=== PATIENT | male | born 1940 | race Caucasian/White ===

== ENCOUNTER 2017-03-05 11:18 | Emergency (ER) | payer MEDICAID, MEDICARE ==
[~2017-03-05] VITALS: Ht 167.6 cm; Wt 56.4 kg
[2017-03-05] MEDS ORDERED: SODIUM CHLORIDE FLUSH 10ML SYR IVF ONE (12:00)
[2017-03-05] MEDS ORDERED: ASPIRIN 81 MG TABLET CHEW PO ONE (12:00)
[2017-03-05] MEDS ORDERED: ASPIRIN 81 MG TABLET CHEW ONE (12:15)
[2017-03-05 12:21] LABS: RAPID INFLUENZA A Negative (Negative); RAPID INFLUENZA B Negative (Negative)
[2017-03-05 12:21] LABS: HEMATOCRIT 46.8 % (39.2-51.8); HEMOGLOBIN 15.5 g/dL (13.7-18.0); WHITE BLOOD COUNT 6.3 x10^3/uL (3.4-10)
[2017-03-05 12:30] LABS: BLOOD UREA NITROGEN 15 mg/dL (7-18)
[2017-03-05 12:36] LABS: ASPARTATE AMINO TRANSFERASE 18 U/L (15-37)
[2017-03-05 12:43] LABS: IS PT STATUS REG ER OR PRE ER? YES
[2017-03-05 13:02] VITALS: BP 118/68
== END 2017-03-05 14:31 | disposition home or self-care (01) ==
LOC: ED 13:40
DX: R07.89 Other chest pain (principal)
CPT/HCPCS: 36415; 71010; 80048; 80076; 82040; 83690; 84484; 85025; 87400; 93005; 99285

== ENCOUNTER 2018-01-15 00:21 | Emergency (ER) | payer MEDICARE ==
[~2018-01-15] VITALS: Ht 165.1 cm; Wt 59.6 kg
[2018-01-15 01:40] VITALS: BP 138/84
== END 2018-01-15 01:04 | disposition home or self-care (01) ==
LOC: ED 00:38
DX: R04.0 Epistaxis (principal); R51 Headache
CPT/HCPCS: 70450; 99284

== ENCOUNTER 2018-06-03 05:54 | Emergency (ER) | payer MEDICARE ==
[~2018-06-03] VITALS: Ht 162.6 cm; Wt 59.5 kg
--- NOTE | 2018-06-03 06:20 | NUR ---
VERY PLEASANT SAMI SPEAKING ONLY GENTLEMN HERE WITH GRADDAUGHTER WHO NOTES NATTY HE BEGAN HAVING A COUGH YESTERDAY PT STATES IS PRODUCTIVE, COMPLAINING CHESP PAIN WITH PALP L SIDE, COMPLAIN OF HEADACHE WELL. PT ONLY HISTORY IS HTN.
[2018-06-03] MEDS ORDERED: ACETAMINOPHEN 500 MG TABLET ONE (06:24)
--- NOTE | 2018-06-03 06:27 | NUR ---
RADIOLOGY TO BEDSIDE, PT MEDICATED WITH TYLENOL FOR PAIN, ENCOURAGE PO FLUIDS, GRANDAUGHTER AT BEDSIDE
[2018-06-03] MEDS ORDERED: ACETAMINOPHEN 500 MG TABLET PO ONE (06:30)
--- NOTE | 2018-06-03 07:19 | NUR ---
Recieved bedside report from SHARI Tinoco. All questions answered. Assuming care of pt. Pt resting on gurney connected to all monitors. Pt's grand daughter at bedside. NADN. No needs expressed. All safety measures in place. Call light within reach. Waiting for istat Trop.
[2018-06-03 08:05] VITALS: BP 121/66
== END 2018-06-03 08:06 | disposition home or self-care (01) ==
LOC: ED 07:52
DX: J06.9 Acute upper respiratory infection, unspecified (principal); M94.0 Chondrocostal junction syndrome [Tietze]; I10 Essential (primary) hypertension
CPT/HCPCS: 36415; 71045; 84484; 93005; 99284

== ENCOUNTER 2020-05-02 16:16 | Emergency (ER) | payer MEDICARE, MEDICAID ==
[~2020-05-02] VITALS: Ht 165.1 cm; Wt 61.2 kg
[~2020-05-02 16:16] MED LIST: ALBUTEROL PO; AMBROXOL PO; ASPI81TA45 PO; ATOR40TA78 PO; CEFD300C37 PO; CEFT1VIA13 IM; DEXA4TAB66 PO; DOXY100T PO; NAPHAZOLINE NAS
--- NOTE | 2020-05-02 16:46 | NUR ---
PT C/O SHARP CHEST PAIN X 4 DAYS. PAIN RADIATES TO THE LEFT SIDE AND IN HIS BACK. WORSENS WITH MOVEMENT. 07/21. PT DENIES CARDIAC HX. PT DENIES N/V, GI PAIN, OR SOB. PT NIECE BEDSIDE. PT VERY HARD OF HEARING.
[2020-05-02] MEDS ORDERED: SODIUM CHLORIDE 0.9% 1,000ML IVBOLUS ONE (17:30)
[2020-05-02] MEDS ORDERED: ASPIRIN 81 MG TABLET CHEW PO ONE (17:30)
[2020-05-02] MEDS ORDERED: ASPIRIN 81 MG TABLET CHEW ONE (17:30)
[2020-05-02] MEDS ORDERED: SODIUM CHLORIDE FLUSH 10ML SYR IVF ONE (17:30)
[2020-05-02 17:52] LABS: BASOPHILS % (AUTO) 1 % (0-1); EOSINOPHILS % (AUTO) 1 % (1-7); LYMPHOCYTES % (AUTO) 17 % (22-44); MEAN CORPUSCULAR HEMOGLOBIN 29.2 pg (27.5-34.5); MEAN CORPUSCULAR HGB CONC 33.3 g/dL (33.2-36.2); MEAN PLATELET VOLUME 8.9 fL (7.4-10.4); MONOCYTES % (AUTO) 9 % (2-9); NEUTROPHILS % (AUTO) 73 % (42-75); PLATELET COUNT 179 x10^3/uL (130-400); RED CELL DISTRIBUTION WIDTH 14.5 % (9.4-14.8)
[2020-05-02 18:01] LABS: MD NO
[2020-05-02 18:03] LABS: ALBUMIN 3.7 g/dL (3.4-5.0); ANION GAP 7 mmol/L (5-15); CALCIUM 8.7 mg/dL (8.5-10.1); CHLORIDE 106 mmol/L (98-107); CREATININE 1.27 mg/dL (0.7-1.3)
[2020-05-02 18:06] LABS: TROPONIN I < 0.015 ng/mL (0.000-0.045)
--- NOTE | 2020-05-02 19:22 | NUR ---
pt resting comfortably, waiting on lab results. no complaint of chest pain at this time. blanket provided for cold feeling. pt on cr monitor and siderails up x2, and call light within reach.
[2020-05-02 20:24] VITALS: BP 125/70
--- NOTE | 2020-05-02 20:25 | NUR ---
Pt a&ox4, ambulatory, and in no acute distress. f/u and d/c instructions given to pt and he v/u.
== END 2020-05-02 20:27 | disposition home or self-care (01) ==
LOC: MERGE 16:16 → ED 17:37
DX: R07.89 Other chest pain (principal); M54.5 Low back pain; R94.31 Abnormal electrocardiogram [ECG] [EKG]; R06.02 Shortness of breath
CPT/HCPCS: 36415; 71045; 80048; 82040; 83880; 84484; 85025; 93005; 96360; 99285; J7030; 96361

== ENCOUNTER 2020-06-22 16:33 | Observation (INO) | payer MEDICARE, MEDICAID ==
[~2020-06-22] VITALS: Ht 165.1 cm; Wt 52.4 kg
--- NOTE | 2020-06-22 17:00 | NUR ---
oceanographic meteorologist completed. Pt is [place]-speaking only, slightly [place] noted, and states he has been having CP with radiation into L back and SOB when pain comes one for the last months since being d/c'd from here for pneumonia. Pt was told to get an appoitment with a patient transport orderly but that office has not called him back for him to make one yet. Pt states pain comes on when he's out running around and takes his breath away with 10/10 pain that slowly resolves to 0/10 with rest. Pt is currently pain free.
--- NOTE | 2020-06-22 17:10 | NUR ---
IV started and labs drawn in expectation of MD orders.
--- NOTE | 2020-06-22 17:15 | NUR ---
MD exam completed with this RN for translation assistance. Granddaughter also present for assistance if needed, but currently none needed. Discussed MD's plan of care for ED and possibility for admission later tonight. Education on translation services available here at this facility for when pt is here on his own to both pt and granddaughter with both stating understanding of this education. Call light in reach and return demonstation verbalized for if he needs assistance to the restroom or wants to watch TV.
[2020-06-22] MEDS ORDERED: ONDANSETRON 2MG/ML, 2ML ONE (17:21)
[2020-06-22] MEDS ORDERED: MORPHINE SULFATE 4 MG/ML, 1ML ONE (17:21)
[2020-06-22] MEDS ORDERED: ASPIRIN 81 MG TABLET CHEW ONE (17:21)
--- NOTE | 2020-06-22 17:27 | NUR ---
Pt medicated as ordered at this time.
[2020-06-22 17:29] LABS: BASOPHILS % (AUTO) 1 % (0-1); EOSINOPHILS % (AUTO) 1 % (1-7); LYMPHOCYTES % (AUTO) 13 % (22-44); MEAN CORPUSCULAR HEMOGLOBIN 29.4 pg (27.5-34.5); MEAN CORPUSCULAR HGB CONC 33.2 g/dL (33.2-36.2); MEAN PLATELET VOLUME 8.6 fL (7.4-10.4); MONOCYTES % (AUTO) 9 % (2-9); NEUTROPHILS % (AUTO) 77 % (42-75); PLATELET COUNT 192 x10^3/uL (130-400); RED BLOOD COUNT 4.96 x10^6/uL (4.38-5.82); RED CELL DISTRIBUTION WIDTH 14.4 % (9.4-14.8)
[2020-06-22] MEDS ORDERED: MORPHINE SULFATE 4 MG/ML, 1ML IVPush PRN (17:30)
[2020-06-22] MEDS ORDERED: ASPIRIN 81 MG TABLET CHEW PO ONE (17:30)
[2020-06-22] MEDS ORDERED: SODIUM CHLORIDE FLUSH 10ML SYR IVF ONE (17:30)
[2020-06-22] MEDS ORDERED: ONDANSETRON 2MG/ML, 2ML IVPush ONE (17:30)
--- NOTE | 2020-06-22 17:30 | NUR ---
Warm blanket provided for c/o feeling cold. No fever present.
[2020-06-22 17:35] LABS: ALANINE AMINOTRANSFERASE 17 U/L (12-78); ANION GAP 7 mmol/L (5-15); CALCIUM 8.6 mg/dL (8.5-10.1); CHLORIDE 106 mmol/L (98-107); CREATININE 1.29 mg/dL (0.7-1.3)
[2020-06-22 17:41] LABS: ALKALINE PHOSPHATASE 99 U/L (45-117); BILIRUBIN,TOTAL 0.3 mg/dL (0.2-1.0); TOTAL PROTEIN 7.4 g/dL (6.4-8.2); TROPONIN I < 0.015 ng/mL (0.000-0.045)
--- NOTE | 2020-06-22 17:48 | NUR ---
Pt noted to have SpO2 of 82% with good waveform and shallow respirations without CP or feelings of dyspnea. Placed on 3L/min O2 via NC and good effect noted with increased SpO2 to 95%.
--- NOTE | 2020-06-22 18:08 | NUR ---
Pt requested restroom assistance. Able to walk with steady gait to and from restroom without CP or SOB though SpO2 after exercise on RA noted to decreased to 77% with rapid recovery to 94% on 3L/min NC once back to room.
--- NOTE | 2020-06-22 18:28 | NUR ---
Report called to SHARI Flores on floor and pt and granddaughter notified of pending transfer. RN receiving pt aware of [place]-speaking only and need for translation.
--- NOTE | 2020-06-22 19:04 | NUR ---
Pt still in room awaiting transport to floor.
[2020-06-22 19:24] VITALS: BP 123/72
[2020-06-22] MEDS ORDERED: ENALAPRILAT 1.25 MG/ML, 2ML IVPush PRN (21:30)
[2020-06-22] MEDS ORDERED: ACETAMINOPHEN 325 MG TABLET PO PRN (21:30)
[2020-06-22] MEDS ORDERED: ONDANSETRON 2MG/ML, 2ML IVPush PRN (21:30)
[2020-06-22] MEDS ORDERED: MELATONIN 5 MG TABLET PO PRN (21:30)
[2020-06-22 23:23] LABS: TROPONIN I < 0.015 ng/mL (0.000-0.045)
[2020-06-23 01:54] VITALS: BP 109/65
[2020-06-23 05:17] LABS: CHOL/HDL RATIO 4.6; CHOLESTEROL, TOTAL 206 mg/dL (140-239); HDL CHOL % 22 % (26-37); HDL CHOLESTEROL (DIRECT) 45 mg/dL (40-60); LDL CHOLESTEROL,CALCULATED 143 mg/dL (54-169); LDL/HDL RATIO 3.2 (0.5-3.0); TRIGLYCERIDES 91 mg/dL (50-200); TROPONIN I < 0.015 ng/mL (0.000-0.045); VLDL CHOLESTEROL 18 mg/dL (0-25)
[2020-06-23] MEDS ORDERED: ASPIRIN 325 MG TABLET EC PO SCH (06:00)
[2020-06-23 07:43] VITALS: BP 137/72
[2020-06-23] MEDS ORDERED: REGADENOSON 0.4 MG/5 ML SYRINGE ONE (08:35)
[2020-06-23 13:04] VITALS: BP 117/69
[2020-06-23] MEDS ORDERED: PRED20TA PO (16:50)
[2020-06-23] MEDS ORDERED: OMNIPAQUE 350 MG/ML, 100ML BOTTLE ONE (16:58)
== END 2020-06-23 18:00 | disposition home or self-care (01) ==
LOC: ED 18:18 → EDIP 18:27 → INTOOBSV 18:27 → 5SO 19:17
PROVIDERS: ADMIT Family Medicine; ATTEND Internal Medicine
DX: R07.89 Other chest pain (principal); J96.01 Acute respiratory failure with hypoxia; J61 Pneumoconiosis due to asbestos and other mineral fibers; J44.1 Chronic obstructive pulmonary disease with (acute) exacerbation; E78.5 Hyperlipidemia, unspecified; I10 Essential (primary) hypertension; J84.9 Interstitial pulmonary disease, unspecified; H91.90 Unspecified hearing loss, unspecified ear; R94.39 Abnormal result of other cardiovascular function study; Z79.82 Long term (current) use of aspirin; Z79.899 Other long term (current) drug therapy
CPT/HCPCS: 36415; 71045; 71275; 78452; 80053; 80061; 83735; 83880; 84484; 85025; 85379; 93005; 93017; 93306; 93356; 96374; 96375; 99285; A9502; G0378; J2270; J2405; J2785; J7512; Q9967

== ENCOUNTER 2020-11-17 11:17 | Emergency (ER) | payer MEDICAID, MEDICARE ==
[~2020-11-17] VITALS: Ht 154.9 cm; Wt 56.7 kg
[~2020-11-17 11:17] MED LIST changes: +PRED20TA PO
[2020-11-17] MEDS ORDERED: SODIUM CHLORIDE FLUSH 10ML SYR IVF ONE (13:30)
[2020-11-17 13:55] LABS: BASOPHILS % (AUTO) 0 % (0-1); EOSINOPHILS % (AUTO) 0 % (1-7); LYMPHOCYTES % (AUTO) 16 % (22-44); MEAN CORPUSCULAR HEMOGLOBIN 29.2 pg (27.5-34.5); MEAN CORPUSCULAR HGB CONC 33.5 g/dL (33.2-36.2); MEAN PLATELET VOLUME 7.9 fL (7.4-10.4); MONOCYTES % (AUTO) 15 % (2-9); NEUTROPHILS % (AUTO) 68 % (42-75); PLATELET COUNT 172 x10^3/uL (130-400); RED BLOOD COUNT 4.86 x10^6/uL (4.38-5.82); RED CELL DISTRIBUTION WIDTH 14.4 % (9.4-14.8)
[2020-11-17 14:05] LABS: TROPONIN I < 0.015 ng/mL (0.000-0.045)
--- NOTE | 2020-11-17 14:38 | NUR ---
BREAK NOTE: PT. IS RESTING WITHOUT CONCERNS. IV ACCESS ESTABLISHED ORDERD. PT.'S RESPIRATIONS ARE EUPNEIC WITH SATS 94% ON ROOM AIR. PT. REPORTS FEELING BETTER AT THIS TIME.
--- NOTE | 2020-11-17 15:02 | NUR ---
PT RESTING IN BED. VSS.
[2020-11-17 15:22] LABS: ANION GAP 9 mmol/L (5-15); CALCIUM 8.5 mg/dL (8.5-10.1); CHLORIDE 104 mmol/L (98-107)
[2020-11-17 15:24] VITALS: BP 125/71
== END 2020-11-17 16:06 | disposition home or self-care (01) ==
LOC: ED 13:36
DX: U07.1 COVID-19 (principal); J45.909 Unspecified asthma, uncomplicated; R06.02 Shortness of breath; J84.10 Pulmonary fibrosis, unspecified
CPT/HCPCS: 36415; 71045; 80048; 83880; 84484; 85025; 93005; 99285; U0003; U0005

== ENCOUNTER 2020-11-27 03:38 | Emergency (ER) | payer MEDICARE ==
[~2020-11-27] VITALS: Ht 177.8 cm; Wt 58.2 kg
--- NOTE | 2020-11-27 03:51 | NUR ---
CHEMICAL PLANT MANAGER: EKG DONE IN [facility]. B/P'S CHECKED ON BOTH ARMS UC=109/72 BV=136/82
[2020-11-27] MEDS ORDERED: ACETAMINOPHEN 500 MG TABLET PO ONE (04:30)
[2020-11-27 04:51] LABS: BASOPHILS % (AUTO) 0 % (0-1); EOSINOPHILS % (AUTO) 1 % (1-7); LYMPHOCYTES % (AUTO) 17 % (22-44); MEAN CORPUSCULAR HEMOGLOBIN 29.1 pg (27.5-34.5); MEAN CORPUSCULAR HGB CONC 33.4 g/dL (33.2-36.2); MEAN PLATELET VOLUME 7.3 fL (7.4-10.4); MONOCYTES % (AUTO) 13 % (2-9); NEUTROPHILS % (AUTO) 69 % (42-75); PLATELET COUNT 285 x10^3/uL (130-400); RED CELL DISTRIBUTION WIDTH 14.3 % (9.4-14.8)
[2020-11-27 04:57] LABS: ALBUMIN 3.1 g/dL (3.4-5.0); ANION GAP 5 mmol/L (5-15); CALCIUM 8.2 mg/dL (8.5-10.1); CHLORIDE 104 mmol/L (98-107); CREATININE 1.14 mg/dL (0.7-1.3)
[2020-11-27 05:00] LABS: TROPONIN I < 0.015 ng/mL (0.000-0.045)
[2020-11-27 05:27] VITALS: BP 131/70
== END 2020-11-27 06:31 | disposition home or self-care (01) ==
LOC: ED 05:42
DX: R07.89 Other chest pain (principal); G44.209 Tension-type headache, unspecified, not intractable; R94.31 Abnormal electrocardiogram [ECG] [EKG]; I10 Essential (primary) hypertension; J45.909 Unspecified asthma, uncomplicated
CPT/HCPCS: 36415; 71045; 80048; 82040; 83880; 84484; 85025; 93005; 99285